=== PATIENT | female | born 1970 | race Hispanic/Latino ===

== ENCOUNTER 2017-01-09 14:52 | Outpatient (CLI) | payer OTHER ==
--- NOTE | 2017-01-09 16:41 | MMO ---
BILATERAL SCREENING MAMMOGRAMS: DATE: 01/09/17 Comparison made to 11/23/15. This patient's mammogram was interpreted with the assistance of computer-aided detection. FINDINGS: There is heterogeneously dense breast parenchyma bilaterally. There is an asymmetric density superim posed upon heterogeneously dense breast parenchyma within the middle depth lateral left breast on CC view likely located centrally on the MLO projection. IMPRESSION: BIRADS 0: Incomplete: Need Additional Imaging Evaluation and/or Prior Mammograms for Comparison Recommend diagnostic left mammogram and, if necessary, left breast ultrasound to further evaluate as ymmetric density of the left breast within the outer aspect, middle depth, seen best on left CC view . The facility will notify the patient of the need for additional imaging services. POS: MOJGAN
== END 2017-01-09 14:53 | disposition home or self-care (01) ==
LOC: SCSMAMMO 14:52
PROVIDERS: ATTEND Internal Medicine
DX: Z12.31 Encounter for screening mammogram for malignant neoplasm of breast (principal)
CPT/HCPCS: 77067; G0202

== ENCOUNTER 2017-12-15 09:15 | Inpatient (IN) | payer OTHER ==
--- NOTE | 2017-12-15 09:47 | HP ---
She is scheduled for surgery inpatient on 12/16/2017. HISTORY OF PRESENT ILLNESS: Ms. Vázquez is a 47-year-old female, who has a history of large uterine f ibroids. She had originally surgery, but is now having more pelvic pressure and abdominal disc omfort. She was seen in my office on 10/20/2017 for annual exam and also complaining of increasing p elvic pressure and increasing abdominal girth and discomfort from the fibroid masses and now is calli ing surgical intervention and removal. Otherwise, she has regular menstrual cycles. She works a RN at [employer] [address] and her primary care physician is Dr. Hutchins, who manages her hypertension, hyperl ipidemia, which is well controlled. PAST MEDICAL HISTORY: As per HPI. FAMILY HISTORY: Noncontributory. ALLERGIES: She has no known drug allergies. CURRENT MEDICATIONS: Norvasc 5 mg daily and pravastatin 20 mg daily for health maintenance. SOCIAL HISTORY: She is nonsmoker, nondrinker. PHYSICAL EXAMINATION: VITAL SIGNS: Her blood pressure was 118/74, pulse was 90, respirations 18, weight 136 pounds and 5 f eet 0 inches height. HEENT: Within normal limits. CHEST: Clear to auscultation. HEART: Regular rate and rhythm. S1 and S2 heart sounds, no murmurs, rubs, or gallops. BREASTS: No masses, nipple discharge, or skin changes. ABDOMEN: Soft and nontender, but she did have an abdominal mass from her uterine fibroids, measuring approximately 22 to 24 week size, at least 4 cm above her umbilicus. EXTREMITIES: Showed no swelling or skin changes. ASSESSMENT: This is a 47-year-old Latin-Cong[place] female with a very large 22 to 24 week uterine fibr oids with increasing symptoms of pelvic pressure and discomfort and abdominal girth and is now desiri ng definitive surgical removal. PLAN: Proceed with a total abdominal hysterectomy with bilateral salpingectomy. Most likely, we adiel l plan for removal of the ovaries at that time too. Risks and benefits of the procedure have been di scussed in detail. We will manage her pain also with a double-lumen ON-Q pain pump for incisional pa in control. Surgery is scheduled on 12/16/2017.
[2017-12-15 09:52] VITALS: BMI 26.5
[2017-12-16] MEDS ORDERED: Gabapentin 300 MG CAP ONE (08:54)
[2017-12-16] MEDS ORDERED: CeleCOXIB 100 MG CAP ONE (08:55)
[2017-12-16] MEDS ORDERED: Famotidine/PF 20 mg/2ml Vial ONE (08:55)
[2017-12-16] MEDS ORDERED: CEFAZOLIN/Water 2 GM/20 ML SYRINGE ONE (08:55)
[2017-12-16] MEDS ORDERED: Fentanyl 250 MCG/5 ML VIAL ONE (10:27)
[2017-12-16] MEDS ORDERED: Morphine 10 MG/ML VIAL ONE (10:27)
[2017-12-16] MEDS ORDERED: Midazolam HCl 2 mg/2 ml Vial ONE (10:27)
[2017-12-16] MEDS ORDERED: Bupivacaine PF 0.5% 30 ML VIAL ONE (11:42)
[2017-12-16] MEDS ORDERED: Meperidine HCl/PF 25 MG/ML VIAL SLOW IVP PRN (12:14)
[2017-12-16] MEDS ORDERED: Promethazine HCl 25 MG/ML VIAL SLOW IVP PRN (12:14)
[2017-12-16] MEDS ORDERED: Promethazine HCl 25 MG/ML VIAL IM PRN ×2 (12:14→12:35)
[2017-12-16] MEDS ORDERED: Ondansetron HCl/PF 4 MG/2 ML Vial IVP PRN ×2 (12:14→12:35)
[2017-12-16] MEDS ORDERED: Bisacodyl 10 MG SUPP PR PRN (12:35)
[2017-12-16] MEDS ORDERED: Zolpidem Tartrate 5 MG TAB PO PRN (12:35)
[2017-12-16] MEDS ORDERED: diphenhydrAMINE 25 MG CAP PO PRN (12:35)
[2017-12-16] MEDS ORDERED: traMADol HCl 50 MG TAB PO PRN ×2 (12:35)
[2017-12-16] MEDS ORDERED: Ropivacaine HCl/PF 750 ML in Premix Bag 1 BAG NERVE BLCK SCH (12:45)
[2017-12-16] MEDS ORDERED: ePHEDrine/0.9% NaCl/PF SYRINGE 50 mg/10 ml ONE (13:20)
[2017-12-16] MEDS ORDERED: Lidocaine 1% PF 5 ML VIAL ONE (13:20)
[2017-12-16] MEDS ORDERED: Glycopyrrolate 0.2 MG/ML 5 ML SYRINGE ONE (13:20)
[2017-12-16] MEDS ORDERED: PROPOFOL 200 MG/20 ML VIAL ONE (13:20)
[2017-12-16] MEDS ORDERED: Dexamethasone 20 MG/5 ML VIAL ONE (13:20)
[2017-12-16] MEDS ORDERED: Ondansetron HCl/PF 4 MG/2 ML Vial ONE (13:20)
[2017-12-16] MEDS ORDERED: PHENYLEPHRINE-NS 100 MCG/ML 10 ML SYRINGE ONE (13:20)
[2017-12-16] MEDS ORDERED: ROPIVACAINE 0.2% NERVE BLCK SCH (16:00)
[2017-12-16] MEDS ORDERED: PUMP NERVE BLCK SCH (16:00)
[2017-12-16] MEDS: Simethicone Chewable 80 MG TAB PO PRN (16:33)
[2017-12-16] MEDS: Sodium Chloride 0.9% 1,000 ML IV SCH ×3 (16:40→23:52)
[2017-12-16] MEDS: Ketorolac Tromethamine 30 MG/ML VIAL IVP SCH (17:49)
[2017-12-16] MEDS: Acetaminophen 1,000 MG in Premix Bag 1 BAG IVPB SCH (19:41)
[2017-12-17] MEDS: Ketorolac Tromethamine 30 MG/ML VIAL IVP SCH ×4 (00:46→17:57)
[2017-12-17] MEDS: Acetaminophen 1,000 MG in Premix Bag 1 BAG IVPB SCH ×4 (00:47→17:58)
[2017-12-17] MEDS: Sodium Chloride 0.9% 1,000 ML IV SCH ×3 (00:54→17:56)
[2017-12-17 05:30] LABS: Hemoglobin 9.2 g/dL (12.0-16.0); Mean Corpuscular HGB CONC 32.5 g/dL (32.0-36.0); Mean Corpuscular Hemoglobin 25.3 pg (27.0-31.0); Mean Corpuscular Volume 77.9 fL (78.0-98.0); Mean Platelet Volume 7.6 fL (7.4-10.4); Platelet Count 504 thou/uL (130-400); RBC Distribution Width 16.9 % (11.5-14.5); Red Blood Cell (RBC) Count 3.63 mill/uL (4.20-5.40); White Blood Cell (WBC) Count 10.7 thou/uL (4.8-10.8)
[2017-12-17] MEDS ORDERED: Aspirin/APAP/Caffeine Tab (Excedrin Migraine) PO PRN (07:34)
--- NOTE | 2017-12-17 08:14 | PDOC.EVN ---
Event Note - Event Note Event Note: Tolerating clears. Good pain control. No nausea. O:AFVSS. HCT 28.5 Abdomen soft/non distended. Bandage dry. A/P Post opday #1 -[facility]. OOB. Advance activity. Possible d/c home tonight if doing well.
[2017-12-17] MEDS ORDERED: Loratadine 10 MG TAB PO SCH (09:00)
[2017-12-17] MEDS: Amlodipine 5 MG TAB PO SCH (09:30)
[2017-12-17] MEDS: Simethicone Chewable 80 MG TAB PO PRN (12:03)
[2017-12-17] MEDS ORDERED: Simvastatin 5 MG TAB PO SCH (21:00)
[2017-12-18] MEDS: Sodium Chloride 0.9% 1,000 ML IV SCH (05:09)
[2017-12-18] MEDS: Ibuprofen 800 MG TAB PO SCH ×2 (06:34→08:56)
[2017-12-18 07:46] VITALS: BP 118/64; TEMP 98.9
--- NOTE | 2017-12-18 07:47 | PDOC.EVN ---
Event Note - Event Note Event Note: Tolerating diet. Passing gas. No nausea. Voiding and ambulating. O:AFVSS ABD:soft/non distended. Incision clean/dry/intact. +BS EXT: non tender. Pathology. Benign uterine fibroid and endometrial polyp. A/P: Doing well post op day 2 from [facility].Ready for discharge home. Has staple removal set for 12/24. Rx for tramadol will be sent to [facility] at [facility].
[2017-12-18] MEDS: Amlodipine 5 MG TAB PO SCH (08:57)
--- NOTE | 2017-12-18 12:26 | DIS ---
DATE OF ADMISSION: 12/16/2017 DATE OF DISCHARGE: 12/18/2017 DIAGNOSES: 1. Symptomatic 20-week uterine fibroids with pelvic pain and menorrhagia. 2. Endometrial polyp. 3. Chronic conditions are chronic hypertension, hyperlipidemia. PROCEDURE PERFORMED: Total abdominal hysterectomy and bilateral salpingectomy. SUMMARY OF HOSPITAL COURSE: Ms. Lopez is a 47-year-old female who had a previous history of large u terine fibroids that have progressively grown to causing more pelvic pain and also the menstrual blee ding. She subsequently wanted definitive surgical therapy with a total abdominal hysterectomy on 02/2018. Her postoperative hematocrit was appropriate fall from 32 to 28.5. Vital signs remained st able throughout. She was progressing well postoperatively, was ambulating, voiding, tolerating regul ar diet on postop day #1. Her pain was under control with an ON-Q pain pump along with minimal p.o. nonsteroidals and tramadol. Pathology revealed benign uterine fibroids and endometrial polyp. She w as discharged postop day #2 with followup planned for removal of jluio cesar and incision check on postop day #8. A prescription for tramadol 50 mg 1 p.o. q.6h. as needed for pain will be called in to her selected pharmacy. She also has another followup set in 6 weeks postop.
--- NOTE | 2017-12-20 18:23 | OP ---
DATE OF PROCEDURE: 12/16/2017 PREOPERATIVE DIAGNOSES: A 47-year-old female with symptomatic 22 to 24 week uterine fibroids. Sympt oms include pelvic pain and menorrhagia. POSTOPERATIVE DIAGNOSES: A 47-year-old female with symptomatic 22 to 24 week uterine fibroids. Symp toms include pelvic pain and menorrhagia and pelvic endometriosis. SURGEON: Lise Barfield M.D. ROUTE AGENT: Tashi Aden M.D. ANESTHESIA: General endotracheal. PROCEDURE PERFORMED: Total abdominal hysterectomy, bilateral salpingectomy. ESTIMATED BLOOD LOSS: 250 mL. ANTIBIOTICS: Two grams Ancef carbonizer to the operating room. PATHOLOGY: Uterus, cervix, and bilateral fallopian tubes. FINDINGS: 1. Normal appearing fallopian tubes and ovaries. 2. A very enlarged uterus with multiple intramural uterine fibroids noted. 3. Bladder was watertight to fluid distension of over 200 mL post-procedure. 4. The patient had evidence of endometriosis with some powder burn lesions in the posterior cul-de-s ac with adhesions of the rectum to the posterior cul-de-sac of the posterior cervix status post adhes iolysis. DISPOSITION: Recovery room, stable and then transferred to floor. DESCRIPTION OF OPERATIVE PROCEDURE: The patient previously received informed consent [facility]. She was taken back to the operating room where she received a general endotracheal anesthetic agent without complications. She was placed in the supine position after SCDs and Diamond catheter cervantes d been placed on the correct process. She was then sterilely prepped and draped in usual sterile fas hion. A vertical midline incision was made just below the umbilicus, this was carried down the fasci a. Fascia was nicked in midline. Fascial incision was extended superiorly and inferiorly. The rect us muscle bellies were then stretched in the peritoneal cavity. Peritoneum was grasped and the perit oneum was entered and peritoneal incision was extended. The large uterus was then delivered through the fascial defect and then the O'Naveed-O'Luz retractor was placed. The bowel was packed away with moist laparotomy sponges for visualization of the operative site. At this time, the right round ligament was identified. It was suture ligated with 0 Vicryl suture. It was transected medially to this suture placement with Bovie cautery. The anterior leaf of the broad ligament was then reached. It was then entered and then a peritoneal incision was then made in the usual fashion with dissecti on of the bladder atraumatically from the lower uterine segment. The posterior broad ligament was en tered from the round ligament and this was carried back towards the uterine ovarian ligament site. T he right fallopian tube had been grasped with Korey clamp. It was incised with Bovie cautery in th e mesosalpinx and free ties of 0 Vicryl placed on the pedicle . The right utero-ovarian ligamen t was then clamped with Juancho clamps, transected, and suture ligated to achieve good hemostasis. Co ntinued skeletonization of the right uterine vessels below the large uterine fibroid was carried out with sharp dissection and then the uterine vessels were clamped in the internal cervical os region be low the large bulky fibroid with two Juancho clamps. These were then transected and suture ligated in a Juancho suture fashion with 0 Vicryl suture securing hemostasis. The same procedure was carried ou t on the left side. Again, the left fallopian tube was grasped with Korey clamp. Mesosalpinx was incised with Bovie cautery developing some windows with Bhavani clamp placement and the pedicles were i ncised and tied off with a free tie of 0 Vicryl suture securing hemostasis and with then excision of the left fallopian tube. The left round ligament was suture ligated and tied off and then it was tra nsected medially to this with Bovie cautery, again entering into the anterior broad ligament, develop ing the vesicouterine peritoneal incision both sharply and bluntly dissecting the bladder atraumatica lly past the cervicovaginal junction. The uterine vessels again were skeletonized after the posterio r broad ligament had been entered and clamping the utero-ovarian ligament on the left side. This was transected and suture ligated with good hemostasis. Uterine vessels again on the left side were ske letonized. They were then clamped at the internal cervical os region transected and suture ligated. Hemostasis was confirmed. The large bulky component of the uterine fibroids were then transected ac ross the upper cervix above the uterine vessel pedicles with Bovie cautery. A retractor had been joshua david in the posterior cul-de-sac protecting the bowel from the cautery site. The posterior cul-de-sac adhesions had been taken down sharply with Metzenbaum scissors, taking the rectum easily and atrauma tically away from the posterior cul-de-sac and below the cervix. Once this had been further accompli shed, straight Chato clamps were placed bilaterally on the remainder of the cardinal and uterosa cral ligament complexes, dissection of the pedicles between and then suture ligated to achieve good h emostasis. The bladder bed then adequately dissected atraumatically past the cervical vaginal angle prior to placement of the Juancho clamp at the vaginal angles of the cervix, these were placed and rem ainder of the cervix was then removed with Patel scissors and intact. The anterior and posterior port ion of the vaginal cuff was grasped in the midline with Gio clamp. The vaginal angles were suture ligated with Hofmeister sutures bilaterally. The intervening vaginal cuff was closed with interrupt ed [id number] sutures of 0 Vicryl. Hemostasis was secured. The pelvis was then irrigated and s uctioned. All pedicle sites were inspected and hemostasis was confirmed. The O'Naveed-O'Luz re tractor and laparotomy sponges were removed. The pelvis again was inspected and hemostasis was confi rmed. The peritoneum was then closed with 2-0 Vicryl. The upper portion of the fascial incision was grasped with Allis clamp and started the closure of the fascia was carried out with #1 PDS. o f this was placed prior to grasping the edges of the middle portion of the fascia with passages on to bilateral double lumen pain pump trocars placing the ON-Q pump catheter subfascially under the rectus muscle bellies. The trocar needles were then removed. The fascia was then closed superiorly and inferiorly with a running continuous 0 PDS suture x2 and tied in midline and good fascial closur e was confirmed. The pain pump catheters were then placed through the trocar sleeves and then the tr ocar sleeves were removed. The subcutaneous tissue was approximated with a running 3-0 plain gut and skin was approximated with julio cesar. The ON-Q pump catheter was flushed with easy flow noted and the n the ON-Q pump will be placed once the patient is in the PACU. The surgery was terminated and no an esthetic or surgical complications.
--- NOTE | 2017-12-22 00:36 | PQF ---
ROXANNA COHEN CYNTHIA A MD [id number] [facility] [id number] CLINICAL DOCUMENTATION CLARIFICATION FORM: POST DISCHARGE Addendum to original discharge summary date: ____ Late entry note date: __ DATE: 12/22/2017 ATTN: DR. Barfield Please exercise your independent, professional judgment in responding to the clarification form. Clinical indicators are provided on the bottom of this form for your review Please check appropriate box(s): [ ] Acute blood loss anemia [ ] Post-op anemia related to acute blood loss [ ] Anemia: [ ] Aplastic [ ] Nutritional [ ] Drug induced (specify) ___ [ ] Hemolytic [ ] Hereditary [ ] Acquired [ ] Autoimmune [ ] Non-autoimmune [ ] Enzyme disorder [ ] Chronic Anemia: [ ] Blood loss [ ] Hemolytic [ ] Simple [ ] Due to Vitamin B12 Deficiency [ ] Other [ ] Anemia of Chronic Disease (please specify) [ ] Anemia due to Neoplasm: [ ] Primary [ ] Secondary [ ] Anemia due to (please choose): [ ] Due to Chemotherapy [ ] Due to Radiotherapy [ ] Due to Immunotherapy [ ] Other diagnosis [ ] Unable to determine In addition, please specify: Present on Admission (POA): [ ] Yes [ ] No [ ] Unable to determine For continuity of documentation, please document condition throughout progress notes and discharge summary. Thank You. CLINICAL INDICATORS - SIGNS / SYMPTOMS / LABS Low hemoglobin and/or hematocrit: 12/17 Hemoglobin 9.2 Hematocrit 28.3 RISK FACTORS: Surgery: [facility] on 12/16 MTDD
== END 2017-12-18 09:40 | disposition home or self-care (01) | DRG 743 ==
LOC: SURG A 12-16 08:20 → 3SE 12-16 14:22
PROVIDERS: ADMIT Obstetrics & Gynecology; ATTEND Obstetrics & Gynecology
PROC: 0UT90ZZ Resection of Uterus, Open Approach (ICD-10-PCS; principal; 2017-12-16)
PROC: 0UT70ZZ Resection of Bilateral Fallopian Tubes, Open Approach (ICD-10-PCS; 2017-12-16)
DX: D25.1 Intramural leiomyoma of uterus (principal); I10 Essential (primary) hypertension; E78.5 Hyperlipidemia, unspecified; N84.0 Polyp of corpus uteri; N80.0 Endometriosis of uterus
CPT/HCPCS: 36415; 80048; 85027; 86850; 86900; 86901; 88307; A4216; J0131; J1100; J1885; J2001; J2250; J2270; J2405; J2704; J2795; J3010; S0020; S0028

== ENCOUNTER 2017-12-15 09:17 | Outpatient (CLI) | payer OTHER ==
[2017-12-15 10:28] LABS: Hemoglobin 10.3 g/dL (12.0-16.0); Mean Corpuscular HGB CONC 31.1 g/dL (32.0-36.0); Mean Corpuscular Hemoglobin 24.3 pg (27.0-31.0); Mean Corpuscular Volume 78.1 fL (78.0-98.0); Mean Platelet Volume 7.4 fL (7.4-10.4); Platelet Count 525 thou/uL (130-400); RBC Distribution Width 17.2 % (11.5-14.5); Red Blood Cell (RBC) Count 4.25 mill/uL (4.20-5.40); White Blood Cell (WBC) Count 5.7 thou/uL (4.8-10.8)
[2017-12-15 10:49] LABS: Anion Gap 12 mmol/L (10-20); BUN (Urea Nitrogen) 12 mg/dL (7.0-18.7); Calc. Creatinine Clearance 0 mL/min (70-130); Calcium 9.4 mg/dL (7.8-10.44); Carbon Dioxide 26 mmol/L (22-29); Chloride 105 mmol/L (98-107); Estimated GFR-MDRD 52; Glucose 94 mg/dL (70-105); Sodium 139 mmol/L (136-145)
== END 2017-12-15 09:18 | disposition home or self-care (01) ==
LOC: LABBT 09:17
PROVIDERS: ATTEND Obstetrics & Gynecology
DX: Z01.812 Encounter for preprocedural laboratory examination (principal); D25.9 Leiomyoma of uterus, unspecified
CPT/HCPCS: 80048; 85027; 86850; 86900; 86901

== ENCOUNTER 2018-04-10 14:41 | Outpatient (CLI) | payer OTHER ==
--- NOTE | 2018-04-10 15:55 | MMO ---
BILATERAL SCREENING MAMMOGRAM: HISTORY: Screening. COMPARISON: Mammogram from 2017 and 2016. TECHNIQUE: Bilateral screening CC and MLO mammograms are performed with computer aided detection. FINDINGS: The breasts are heterogeneously dense, which may obscure small masses. There is asymmetry, right deborah ast, medial one-half, which was seen back in 2013, likely superimposition of breast tissue. No suspi cious mass, architectural distortion, or microcalcifications. IMPRESSION: BI-RADS 2-Benign findings. Continued screening is recommended. POS: MOJGAN
== END 2018-04-10 14:42 | disposition home or self-care (01) ==
LOC: SCSMAMMO 14:41
PROVIDERS: ATTEND Obstetrics & Gynecology
DX: Z12.31 Encounter for screening mammogram for malignant neoplasm of breast (principal)
CPT/HCPCS: 77067

== ENCOUNTER 2019-01-14 13:32 | Outpatient (CLI) | payer OTHER ==
--- NOTE | 2019-01-14 16:05 | ULT ---
RIGHT BREAST ULTRASOUND: 01/14/19 HISTORY: Abnormal mammogram of 01/04/19. FINDINGS: Correlation is made with the mammograms of 01/04/19. Sonographic evaluation of the 9 o'clock position of the deep right breast 4 cm from the nipple demons trates a well circumscribed somewhat lobulated nonshadowing hypoechoic mass measuring 1.2 x 0.5 x 0.9 cm. This may represent a lymph node. However, flow in an echogenic hilum is not demonstrated. A foll ow-up right breast ultrasound is recommended in six months. IMPRESSION: BIRADS 3: Probably Benign Finding Initial Short-Interval Follow-Up Suggested Initial short-term follow up (usually 6-month) examination. Six month follow-up right breast ultrasound is recommended. POS: OFF
== END 2019-01-14 13:33 | disposition home or self-care (01) ==
LOC: BICULT 13:32
PROVIDERS: ATTEND Obstetrics & Gynecology
DX: N64.89 Other specified disorders of breast (principal)

== ENCOUNTER 2021-01-10 12:34 | Outpatient (CLI) | payer OTHER | END 2021-01-10 12:35 | disposition home or self-care (01) | LOC: BICMAMMO 12:34 | PROVIDERS: ATTEND Obstetrics & Gynecology | DX: Z12.31 Encounter for screening mammogram for malignant neoplasm of breast (principal) | CPT/HCPCS: 77063; 77067 ==

== ENCOUNTER 2021-04-29 21:52 | Emergency (ER) | payer OTHER ==
[2021-04-29 23:39] LABS: HIV (1/2) Antibody/Antigen Non-Reactive (NonReactive); HIV 1/2 INDEX 0.07 S/CO (<1.00); Hep C IgG Ab Non-Reactive (NonReactive); Hep C Index 0.17 S/CO (0-0.79)
[2021-04-29 23:48] LABS: HBSAB Concentration 172.12 mIU/mL; Hep B Surf AB Reactive (NonReactive)
== END 2021-04-29 22:48 | disposition home or self-care (01) ==
LOC: ERS 21:52
DX: Z77.21 Contact with and (suspected) exposure to potentially hazardous body fluids (principal); I10 Essential (primary) hypertension
CPT/HCPCS: 36415; 86706; 86803; 87389; 99283

== ENCOUNTER 2022-03-05 09:04 | Outpatient (CLI) | payer BC | END 2022-03-05 09:05 | disposition home or self-care (01) | LOC: BICMAMMO 09:04 | PROVIDERS: ATTEND Obstetrics & Gynecology | DX: N64.89 Other specified disorders of breast (principal); N63.15 Unspecified lump in the right breast, overlapping quadrants; N64.9 Disorder of breast, unspecified | CPT/HCPCS: G0279 ==